=== PATIENT | male | born 1970 | race African-American/Black ===

== ENCOUNTER 2018-08-29 15:19 | Emergency (ER) | payer OTHER ==
[~2018-08-29] VITALS: Ht 175.3 cm; Wt 81.8 kg
[~2018-08-29 15:19] MED LIST: ABILIFY 15MG TA15 MG PO; AMBIEN 10MG10 MG PO; ATROVENTNS0.03% NS; DESYREL 50MG50 MG PO; NORCO 325 MG-51 TAB PO
[2018-08-29 15:29] VITALS: BP 125/73; TEMP 98.6
[2018-08-29] MEDS ORDERED: PREDNISONE20 MG PO (15:50)
[2018-08-29 16:23] VITALS: PULSE 78
[2018-08-29] MEDS ORDERED: NORCO 325 MG-7.1 TAB PO (16:39)
[2018-08-29] MEDS ORDERED: DESYREL 100MG100 MG PO (16:40)
== END 2018-08-29 16:23 | disposition home or self-care (01) ==
LOC: COL.ER 15:19
DX: L29.9 Pruritus, unspecified (principal)
CPT/HCPCS: J7512

== ENCOUNTER 2019-10-07 00:20 | Emergency (ER) | payer OTHER ==
[~2019-10-07] VITALS: Ht 175.3 cm; Wt 72.7 kg
[~2019-10-07 00:20] MED LIST changes: +DESYREL 100MG100 MG PO; +NORCO 325 MG-7.1 TAB PO; +PREDNISONE20 MG PO
[2019-10-07 00:30] VITALS: TEMP 97.2
[2019-10-07 01:04] LABS: BASO % 0.4 % (0.0-2.0); EOS % 0.4 % (0-4.0); GRAN # 3.5 (1.4-6.5); GRAN % 37.2 % (42.2-75.2); HEMATOCRIT 38.7 % (42.0-52.0); HEMOGLOBIN 13.3 g/dl (13.5-18.0); LYMPH % 52.5 % (20.0-51.0); MEAN CELL VOLUME 84 fl (80.0-100.0); MEAN CORPUSCULAR HEMOGLOBIN 29 pg (27.0-31.0); MEAN CORPUSCULAR HGB CONC 34 g/dl (33.0-37.0); MEAN PLATELET VOLUME 9.8 fl (7.4-10.4); MONO # 0.9 (0.1-0.6); MONO % 9.4 % (1.7-9.3); PLATELET COUNT 336 K/mm3 (130-400); RED BLOOD COUNT 4.62 M/mm3 (4.20-5.60); REDCELL DISTRIBUTION WIDTH-CV 12.9 % (11.5-14.5)
[2019-10-07 01:15] LABS: ALBUMIN 4.3 gm/dL (3.5-5.0); BILIRUBIN,TOTAL 0.4 mg/dL (0.0-1.0); CALCIUM 9.2 mg/dL (8.4-10.2); CREATININE, serum 1.1 (0.66-1.25); POTASSIUM 3.1 mmol/L (3.4-5.0); TOTAL PROTEIN 7.5 gm/dL (6.4-8.2)
[2019-10-07 01:17] LABS: C-REACTIVE PROTEIN 0.5 mg/dL (0.0-0.9)
[2019-10-07 02:47] LABS: COLLECTION METHOD CLEAN CATCH
[2019-10-07 02:53] LABS: MUCOUS Present /lpf; PH 6 (5-8); SQUAMOUS EPITHELIAL 0-2 /hpf; URINE APPEARANCE Hazy; URINE BACTERIA None Seen /hpf; URINE BILIRUBIN Negative (NEGATIVE); URINE BLOOD 3+ (NEGATIVE); URINE COLOR Yellow; URINE GLUCOSE Negative (NEGATIVE); URINE KETONE 1+ (NEGATIVE); URINE LEUKOCYTE ESTERASE Negative (NEGATIVE); URINE NITRATE Negative (NEGATIVE); URINE PROTEIN(semi-quant) Negative (NEGATIVE); URINE RBC >50 /hpf; URINE UROBILINOGEN Negative (NEGATIVE)
[2019-10-07 04:12] VITALS: BP 130/79; PULSE 61
[2019-10-07] MEDS ORDERED: FLAGYL500 MG PO (04:15)
[2019-10-07] MEDS ORDERED: PERCOCET 325 MG1 TA2 PO (04:15)
[2019-10-07] MEDS ORDERED: LEVAQUIN 750MG750 M1 PO (04:15)
[2019-10-07] MEDS ORDERED: PHENERGAN 25 TA25 MG PO (04:16)
== END 2019-10-07 04:31 | disposition home or self-care (01) ==
LOC: COL.ER 00:20
PROVIDERS: Nurse Practitioner
DX: K52.9 Noninfective gastroenteritis and colitis, unspecified (principal); F43.10 Post-traumatic stress disorder, unspecified; F32.9 Major depressive disorder, single episode, unspecified; F41.9 Anxiety disorder, unspecified; J45.909 Unspecified asthma, uncomplicated; Z88.8 Allergy status to other drugs, medicaments and biological substances
CPT/HCPCS: J1170; J1885; J2405; J7030; Q9967

== ENCOUNTER 2019-10-10 23:20 | Emergency (ER) | payer OTHER ==
[~2019-10-10] VITALS: Ht 175.3 cm; Wt 75.0 kg
[~2019-10-10 23:20] MED LIST changes: +FLAGYL500 MG PO; +LEVAQUIN 750MG750 M1 PO; +PERCOCET 325 MG1 TA2 PO; +PHENERGAN 25 TA25 MG PO
[2019-10-10] MEDS ORDERED: BUSPAR10 MG PO (23:32)
[2019-10-10] MEDS ORDERED: ZOLOFT 100MG100 MG PO (23:32)
[2019-10-11 00:01] LABS: BASO % 0.3 % (0.0-2.0); EOS % 0.4 % (0-4.0); GRAN # 6.5 (1.4-6.5); GRAN % 71.9 % (42.2-75.2); HEMATOCRIT 37.9 % (42.0-52.0); LYMPH # 1.6 (1.2-3.4); LYMPH % 17.8 % (20.0-51.0); MEAN CELL VOLUME 85 fl (80.0-100.0); MEAN CORPUSCULAR HEMOGLOBIN 29 pg (27.0-31.0); MEAN CORPUSCULAR HGB CONC 34 g/dl (33.0-37.0); MEAN PLATELET VOLUME 9.8 fl (7.4-10.4); MONO # 0.9 (0.1-0.6); MONO % 9.4 % (1.7-9.3); PLATELET COUNT 301 K/mm3 (130-400); RED BLOOD COUNT 4.47 M/mm3 (4.20-5.60); REDCELL DISTRIBUTION WIDTH-CV 13.2 % (11.5-14.5)
[2019-10-11 00:07] LABS: ALBUMIN 4.1 gm/dL (3.5-5.0); BILIRUBIN,TOTAL 0.3 mg/dL (0.0-1.0); CALCIUM 9.2 mg/dL (8.4-10.2); CREATININE, serum 1.28 (0.66-1.25); POTASSIUM 3.4 mmol/L (3.4-5.0); TOTAL PROTEIN 7.1 gm/dL (6.4-8.2)
[2019-10-11 00:36] LABS: COLLECTION METHOD CLEAN CATCH
[2019-10-11 00:42] LABS: MUCOUS Present /lpf; PH 6 (5-8); SQUAMOUS EPITHELIAL None Seen /hpf; URINE APPEARANCE Clear; URINE BACTERIA None Seen /hpf; URINE BILIRUBIN Negative (NEGATIVE); URINE BLOOD 2+ (NEGATIVE); URINE COLOR Yellow; URINE GLUCOSE Negative (NEGATIVE); URINE KETONE Negative (NEGATIVE); URINE LEUKOCYTE ESTERASE Negative (NEGATIVE); URINE NITRATE Negative (NEGATIVE); URINE PROTEIN(semi-quant) Negative (NEGATIVE); URINE RBC 20-50 /hpf; URINE UROBILINOGEN Negative (NEGATIVE)
[2019-10-11 03:00] VITALS: BP 118/66; PULSE 62; TEMP 98.7
[2019-10-11] MEDS ORDERED: NORCO 325 MG-7.1 TAB PO (12:06)
== END 2019-10-11 03:06 | disposition home or self-care (01) ==
LOC: COL.ER 23:20
PROVIDERS: Nurse Practitioner Primary Care
DX: N20.0 Calculus of kidney (principal); F43.10 Post-traumatic stress disorder, unspecified; F41.9 Anxiety disorder, unspecified; F32.9 Major depressive disorder, single episode, unspecified
CPT/HCPCS: J1170; J1885; J2405; J3010; J7030

== ENCOUNTER 2019-11-02 11:37 | Emergency (ER) | payer OTHER ==
[~2019-11-02] VITALS: Ht 175.3 cm; Wt 72.7 kg
[~2019-11-02 11:37] MED LIST changes: +BUSPAR10 MG PO; +ZOLOFT 100MG100 MG PO
[2019-11-02 11:48] VITALS: TEMP 98.4
[2019-11-02 12:38] LABS: BASO % 0.3 % (0.0-2.0); GRAN # 4.9 (1.4-6.5); GRAN % 71.6 % (42.2-75.2); HEMATOCRIT 39.9 % (42.0-52.0); HEMOGLOBIN 13.3 g/dl (13.5-18.0); LYMPH # 1.5 (1.2-3.4); LYMPH % 21.9 % (20.0-51.0); MEAN CELL VOLUME 86 fl (80.0-100.0); MEAN CORPUSCULAR HEMOGLOBIN 29 pg (27.0-31.0); MEAN CORPUSCULAR HGB CONC 33 g/dl (33.0-37.0); MEAN PLATELET VOLUME 9.7 fl (7.4-10.4); MONO # 0.4 (0.1-0.6); MONO % 6.1 % (1.7-9.3); PLATELET COUNT 302 K/mm3 (130-400); RED BLOOD COUNT 4.64 M/mm3 (4.20-5.60); REDCELL DISTRIBUTION WIDTH-CV 12.9 % (11.5-14.5)
[2019-11-02 12:53] LABS: ALBUMIN 4.6 gm/dL (3.5-5.0); BILIRUBIN,TOTAL 0.5 mg/dL (0.0-1.0); CALCIUM 9.8 mg/dL (8.4-10.2); CREATININE, serum 1.08 (0.66-1.25); POTASSIUM 3.9 mmol/L (3.4-5.0); TOTAL PROTEIN 7.8 gm/dL (6.4-8.2)
[2019-11-02 14:15] VITALS: BP 117/70; PULSE 68
== END 2019-11-02 14:15 | disposition home or self-care (01) ==
LOC: COL.ER 11:37
PROVIDERS: Emergency Medicine
DX: R19.7 Diarrhea, unspecified (principal)
CPT/HCPCS: J2405; J7030

== ENCOUNTER 2019-12-29 08:20 | Outpatient (CLI) | payer OTHER ==
[~2019-12-29] VITALS: Ht 175.4 cm; Wt 73.2 kg
[2019-12-29 09:13] LABS: CALCIUM 9.4 mg/dL (8.4-10.2); CREATININE, serum 1.06 (0.66-1.25); POTASSIUM 3.9 mmol/L (3.4-5.0)
[2019-12-29 09:14] LABS: HEMATOCRIT 39.1 % (42.0-52.0); HEMOGLOBIN 13.2 g/dl (13.5-18.0); INR 1.1 (0.8-3.0); MEAN CELL VOLUME 86 fl (80.0-100.0); MEAN CORPUSCULAR HEMOGLOBIN 29 pg (27.0-31.0); MEAN CORPUSCULAR HGB CONC 34 g/dl (33.0-37.0); MEAN PLATELET VOLUME 9.8 fl (7.4-10.4); PLATELET COUNT 295 K/mm3 (130-400); PROTHROMBIN TIME 12.3 SECONDS (9.7-12.8); RED BLOOD COUNT 4.54 M/mm3 (4.20-5.60); REDCELL DISTRIBUTION WIDTH-CV 12.9 % (11.5-14.5)
[2019-12-29 09:24] VITALS: BP 108/61; PULSE 58; TEMP 98.6
[2019-12-29 10:55] VITALS: BP 113/74; PULSE 57
--- NOTE | 2019-12-29 10:55 | NUR ---
Assumed care of pt after VALE, report received from Irma CARDOSO. Pt is resting comfortably on bed, he is drowsy, alert, pwd, with reg unlabored respirations. pt and updated on poc. no concerns wctm
[2019-12-29 11:10] VITALS: BP 112/65; PULSE 58
[2019-12-29 11:25] VITALS: BP 111/68; PULSE 53
[2019-12-29 11:40] VITALS: BP 115/68; PULSE 55
[2019-12-29 11:55] VITALS: BP 115/70; PULSE 53
--- NOTE | 2019-12-29 12:10 | NUR ---
Pt ready for departure. saline lock dc'[d with cath intact, dressing applied. I reviewed discharge instructions with pt and who denied any questions. Pt has been able to drink with no problem and is ambulatory with steady gait. He is escorted to exit via wheelchair.
== END 2019-12-29 12:24 | disposition home or self-care (01) ==
LOC: COL.RAD 08:20
PROVIDERS: Internal Medicine Cardiovascular Disease
DX: I34.1 Nonrheumatic mitral (valve) prolapse (principal); I34.0 Nonrheumatic mitral (valve) insufficiency
CPT/HCPCS: J2704

== ENCOUNTER 2021-11-01 15:53 | Emergency (ER) | payer OTHER ==
[~2021-11-01] VITALS: Ht 175.3 cm; Wt 77.3 kg
[2021-11-01 16:44] VITALS: BP 118/64; TEMP 98.1
[2021-11-01 17:26] LABS: COLLECTION METHOD CLEAN CATCH
[2021-11-01 17:34] LABS: MUCOUS Present (NOT PRESENT); PH 5 (5-8); SQUAMOUS EPITHELIAL None Seen /hpf (0-10); URINE APPEARANCE Clear (CLEAR/HAZY); URINE BACTERIA None Seen /hpf (NONE SEEN); URINE BILIRUBIN Negative (NEGATIVE); URINE BLOOD Negative (NEGATIVE); URINE COLOR Yellow (YELLOW); URINE GLUCOSE Negative (NEGATIVE); URINE KETONE Negative (NEGATIVE); URINE LEUKOCYTE ESTERASE Negative (NEGATIVE); URINE NITRATE Negative (NEGATIVE); URINE PROTEIN(semi-quant) Negative (NEGATIVE); URINE UROBILINOGEN Negative (NEGATIVE)
[2021-11-01 18:30] VITALS: PULSE 70
== END 2021-11-01 18:30 | disposition home or self-care (01) ==
LOC: COL.ER 15:53
PROVIDERS: Physician Assistant
DX: R31.9 Hematuria, unspecified (principal); Z87.442 Personal history of urinary calculi

== ENCOUNTER 2021-12-31 11:12 | Emergency (ER) | payer OTHER ==
[~2021-12-31] VITALS: Ht 172.7 cm; Wt 77.3 kg
[2021-12-31 12:09] LABS: COLLECTION METHOD CLEAN CATCH
[2021-12-31 12:13] LABS: BASO % 0.5 % (0.0-2.0); EOS % 0.6 % (0.0-4.0); GRAN # 4.1 K/mm3 (1.4-6.5); GRAN % 62.4 % (42.2-75.2); HEMATOCRIT 40.6 % (42.0-52.0); HEMOGLOBIN 13.3 g/dl (13.5-18.0); LYMPH # 1.9 K/mm3 (1.2-3.4); LYMPH % 29.3 % (20.0-51.0); MEAN CELL VOLUME 88 fl (80.0-100.0); MEAN CORPUSCULAR HEMOGLOBIN 29 pg (27-31); MEAN CORPUSCULAR HGB CONC 33 g/dl (33.0-37.0); MEAN PLATELET VOLUME 9.6 fl (7.4-10.4); MONO # 0.5 K/mm3 (0.1-0.6); MONO % 6.9 % (1.7-9.3); PLATELET COUNT 339 K/mm3 (130-400); RED BLOOD COUNT 4.62 M/mm3 (4.20-5.60); REDCELL DISTRIBUTION WIDTH-CV 14.3 % (11.5-14.5)
[2021-12-31 12:25] LABS: PH 5 (5-8); URINE APPEARANCE Clear (CLEAR/HAZY); URINE BILIRUBIN Negative (NEGATIVE); URINE BLOOD Negative (NEGATIVE); URINE COLOR Yellow (YELLOW); URINE GLUCOSE Negative (NEGATIVE); URINE KETONE Negative (NEGATIVE); URINE NITRATE Negative (NEGATIVE); URINE PROTEIN(semi-quant) Negative (NEGATIVE); URINE UROBILINOGEN Negative (NEGATIVE)
[2021-12-31 12:26] LABS: MUCOUS Present (NOT PRESENT); SQUAMOUS EPITHELIAL None Seen /hpf (0-10); URINE BACTERIA None Seen /hpf (NONE SEEN); URINE LEUKOCYTE ESTERASE Negative (NEGATIVE); URINE RBC 0-2 /hpf (0-2)
[2021-12-31 12:32] LABS: ALBUMIN 4.5 gm/dL (3.5-5.0); BILIRUBIN,TOTAL 0.3 mg/dL (0.2-1.2); C-REACTIVE PROTEIN 0.26 mg/dL (0.00-0.50); CALCIUM 9.7 mg/dL (8.4-10.2); CREATININE, serum 1.16 mg/dL (0.72-1.25); POTASSIUM 3.7 mmol/L (3.5-4.5); TOTAL PROTEIN 7.5 gm/dL (6.2-8.1)
[2021-12-31] MEDS ORDERED: PREDNISONE20 MG PO (14:14)
[2021-12-31 14:34] VITALS: BP 141/101; PULSE 57; TEMP 98.7
== END 2021-12-31 14:27 | disposition home or self-care (01) ==
LOC: COL.ER 11:12
PROVIDERS: Family Medicine
DX: S33.9XXA Sprain of unspecified parts of lumbar spine and pelvis, initial encounter (principal); X58.XXXA Exposure to other specified factors, initial encounter
CPT/HCPCS: J2405; J7120; Q9967

== ENCOUNTER 2022-03-19 21:01 | Emergency (ER) | payer OTHER ==
[~2022-03-19] VITALS: Ht 177.8 cm; Wt 75.0 kg
[2022-03-19 21:29] LABS: COLLECTION METHOD CLEAN CATCH
[2022-03-19 21:33] LABS: BASO % 0.2 % (0.0-2.0); GRAN % 86.8 % (42.2-75.2); HEMOGLOBIN 11.9 g/dl (13.5-18.0); LYMPH # 0.7 K/mm3 (1.2-3.4); LYMPH % 8.1 % (20.0-51.0); MEAN CELL VOLUME 86 fl (80.0-100.0); MEAN CORPUSCULAR HEMOGLOBIN 29 pg (27-31); MEAN CORPUSCULAR HGB CONC 34 g/dl (33.0-37.0); MEAN PLATELET VOLUME 10.2 fl (7.4-10.4); MONO # 0.4 K/mm3 (0.1-0.6); MONO % 4.7 % (1.7-9.3); PLATELET COUNT 233 K/mm3 (130-400); RED BLOOD COUNT 4.14 M/mm3 (4.20-5.60); REDCELL DISTRIBUTION WIDTH-CV 13.2 % (11.5-14.5)
[2022-03-19 21:36] LABS: HEMATOCRIT 35.4 % (42.0-52.0)
[2022-03-19 21:50] LABS: MUCOUS Present (NOT PRESENT); PH 5 (5-8); SQUAMOUS EPITHELIAL 0-2 /hpf (0-10); URINE APPEARANCE Cloudy (CLEAR/HAZY); URINE BACTERIA None Seen /hpf (NONE SEEN); URINE BILIRUBIN Negative (NEGATIVE); URINE BLOOD Negative (NEGATIVE); URINE COLOR Amber (YELLOW); URINE GLUCOSE Negative (NEGATIVE); URINE KETONE Trace (NEGATIVE); URINE LEUKOCYTE ESTERASE Negative (NEGATIVE); URINE NITRATE Negative (NEGATIVE); URINE PROTEIN(semi-quant) 2+ (NEGATIVE); URINE RBC 0-2 /hpf (0-2); URINE UROBILINOGEN Negative (NEGATIVE)
[2022-03-19 21:54] LABS: ALANINE AMINOTRANSFERASE 231 U/L (0-55); ALBUMIN 3.6 gm/dL (3.5-5.0); ALKALINE PHOSPHATASE 63 U/L (40-150); ANION GAP 13 mmol/L (7-16); AST,SGOT 174 U/L (5-34); BILIRUBIN,TOTAL 0.4 mg/dL (0.2-1.2); BLOOD UREA NITROGEN 14 mg/dL (8-26); CALCIUM 8.1 mg/dL (8.4-10.2); CARBON DIOXIDE 21 mmol/L (22-29); CHLORIDE 105 mmol/L (98-107); CREATININE, serum 1.34 mg/dL (0.72-1.25); GLUCOSE 215 mg/dL (70-99); POTASSIUM 3.4 mmol/L (3.5-4.5); SODIUM 139 mmol/L (136-145); TOTAL PROTEIN 6.6 gm/dL (6.2-8.1); TRICYCLIC ANTIDEPRESS URINE NEGATIVE
[2022-03-19 22:02] LABS: ACETAMINOPHEN < 1.0 ug/mL (10-30); ALCOHOL(ethanol),MEDICAL < 10 mg/dL (0-10); SALICYLATE < 5.0 mg/dL (15.0-30.0); TROPONIN-I < 0.010 ng/mL (0.00-0.033)
[2022-03-19 22:25] LABS: ARTERIAL BLD GAS O2 SATURATION 99.5 % (92-100); ARTERIAL BLOOD GAS BASE EXCESS -6.5 (-2-2); ARTERIAL BLOOD GAS HCO3 19.7 meq/L (22-26); ARTERIAL BLOOD GAS PCO2 41.6 mmHg (35-45); ARTERIAL BLOOD GAS pH 7.29 (7.35-7.45)
[2022-03-19 22:27] LABS: ARTERIAL BLOOD GAS PO2 399.9 mmHg (80-100)
--- NOTE | 2022-03-20 00:25 | NUR ---
Pt intubated in ER by Dr. Salazar. 7.5 ETT @ 25 TEETH, positive breath sounds and color change with ETCO2 detector. Pt ventilated with BVM and 100% oxygen and transported to CT after intubated. Pt placed on vent on ordered settings after returning to ER. ABG done and results given to Dr. Salazar.
--- NOTE | 2022-03-20 00:32 | NUR ---
FIO2 decreased to 50% and RR increased to 18 at this time as ordered. Tolerating well.
--- NOTE | 2022-03-20 00:39 | NUR ---
Transfer of care at this time. Pt placed on EMS transport ventilator and tolerating well.
--- NOTE | 2022-03-20 00:42 | NUR ---
Transfer of care at this time. Pt placed on EMS transport vent and tolerating well.
[2022-03-20 11:07] VITALS: BP 113/89; PULSE 88
== END 2022-03-19 23:45 | disposition short-term general hospital (02) ==
LOC: COL.ER 21:01
PROVIDERS: Emergency Medicine
DX: S02.0XXA Fracture of vault of skull, initial encounter for closed fracture (principal); S06.301A Unspecified focal traumatic brain injury with loss of consciousness of 30 minutes or less, initial encounter; J96.90 Respiratory failure, unspecified, unspecified whether with hypoxia or hypercapnia; W10.8XXA Fall (on) (from) other stairs and steps, initial encounter
CPT/HCPCS: J0330; J2250; J3010; J7030; J7060